=== PATIENT | male | born 1950 | race Caucasian/White ===

== ENCOUNTER → 2018-01-19 | Outpatient (CLI) | payer MEDICARE ==
[~2018-01-19] MED LIST: ALBU6.7H INH; AMLO5TAB2 PO; ASPI-496 PO; ASPI-515 PO; CHOL20002 PO; CITA10TA4 PO; FLUT1AER INH; FURO-92 PO; GABA300C10 PO; HYDR-3240 PO; LISI-170 PO; LORA-446 PO; METH-356 PO; OLOP5DRO EACHEYE; OMEP-110 PO; POTA20TA14 PO; PRAV20TA2 PO; TEST5POW3 IM; TIOT18CA INH; TRAM50TA2 PO; TRAZ50TA18 PO; ZOLP10TA5 PO
== END | disposition home or self-care (01) ==
LOC: CFH 15:50
PROVIDERS: ATTEND Orthopaedic Surgery
DX: M79.604 Pain in right leg (principal); R22.41 Localized swelling, mass and lump, right lower limb